=== PATIENT | female | born 1940 | race Caucasian/White ===

== ENCOUNTER 2020-07-07 01:21 | Observation (INO) ==
--- NOTE | 2020-07-07 01:48 | ERNOTE ---
Medical Problem HPI - Narrative Date of Service: 07/07/20 - General Chief Complaint: General Assessment Time Seen by Provider: 07/07/20 01:23 Source: patient, family Exam Limitations: no limitations - Immun/Allergies/Home Medications Immunizations: IMMUNIZATION HX Immunizations Up to Date Yes History of Influenza Vaccine No Hx Pneumococcal Vaccination No Allergies/Adverse Reactions: Allergies adhesive tape Allergy (Severe, Verified 07/07/20 01:38) rash Penicillins Allergy (Intermediate, Verified 07/07/20 01:38) Swelling (Other) Home Medications: HOME MEDICATIONS ascorbic acid (vitamin C) 500 mg tablet 500 mg PO DAILY 02/17/18 [Last Taken 03/19/19] acetaminophen 325 mg capsule 325 mg PO Q6H PRN 02/22/18 [Last Taken 03/18/19] aspirin 81 mg tablet,delayed release 81 mg PO DAILY 02/22/18 [Last Taken 03/16/19] omega-3 fatty acids 1,000 mg capsule 1,000 mg PO DAILY 02/22/18 [Last Taken 03/19/19] Clopidogrel Bisulfate [Plavix] 75 mg PO DAILY #30 tab 12/09/19 [Last Taken Unk nown] levothyroxine 137 mcg tablet 137 mcg PO DAILY #30 tab 05/27/20 [Last Taken Unknown] oxyCODONE HCL/ACETAMINOPHEN [Percocet 5-325 mg Tablet] 2 ea PO Q6H PRN 07/07/20 [Last Taken Unknown] - History of Present History Narrative: This patient is an 80-year-old female who arrived by ambulance with generalized weakness. She has a history of metastatic end-stage lung cancer. She is no longer receiving chemotherapy. She is scheduled to go into hospice on Wednesday, one day from now. She is currently living at home. She is not able to walk. She says that she is short of breath but indicates that she just feels too weak to breathe. She denies having any fever or cold symptoms. She is not having any chest or abdominal pain. Her gave her pain medication before coming in. She would like to stay in the hospital. She prefers comfort care and is not interested in any further work-up or treatment. She requests being DNR. Review of Systems - Review of Systems All Other Systems: All systems neg except as marked Medical History (Last Reviewed 07/07/20 @ 02:19 by Mynor Galicia MD) Lung cancer Wears dentures Back pain Onset Date: Unknown Contact dermatitis Onset Date: ~01/17/13 Hypothyroidism Onset Date: Unknown Urinary frequency Onset Date: ~05/11/12 Otitis media, acute Onset Date: ~05/11/12 URI (upper respiratory infection) Onset Date: Unknown UTI (urinary tract infection) Onset Date: Unknown Surgical History: Surgical History (Last Reviewed 07/07/20 @ 02:19 by Mynor Galicia MD) Cystocele Onset Date: 09/06/06 Dr Leon-Repair H/O colonoscopy Onset Date: 02/01/09 02/01/09 [place]-normal. 03/21/19 [place]-diverticulosis, external hemorrhoids. No further needed. H/O: hysterectomy Onset Date: ~1992 [place] [facility] History of bladder surgery Onset Date: 09/06/06 Dr. Leon-Transvaginal tape with bladder neck suspension History of carpal tunnel release Onset Date: 01/31/16 [place]-right History of cataract surgery Onset Date: Unknown [facility] Hx of cholecystectomy Onset Date: Unknown lap Family History: Family History (Last Reviewed 07/07/20 @ 02:19 by Mynor Galicia MD) Father , age 65 Lung cancer dx age 65 Mother , age 70's Lung cancer dx age 70's Son , age 45-[place] Cancer unknown type Son , age 40-[place] Myocardial infarction Brother , age 78-cancer Cancer groin area-dx age 78 Son , age 44-adrenal gland ca Cancer adrenal gland ca-dx age 44 Son Diabetes Heart disease Social History: (Last Reviewed 07/07/20 @ 02:19 by Mynor Galicia MD) Social History: adopted: No foster care: No fci: No Marital status: lives independently: Yes household members: spouse caregiver/support person: No current occupational status: retired current occupation: retired Highest level of school completed/degree received: high school graduate Service: No Tobacco: Smoking Status: Former smoker Alcohol: alcohol intake: current alcohol intake frequency: holiday/special occasion Substance Use: substance use type: does not use Dietary Habits: caffeine: Yes Personal Safety: victim of physical abuse: No victim of emotional abuse: No Physical Exam - Physical Exam General Appearance: Present: alert, no apparent distress, cachetic - And sickly appearing., other - She is lying on the table on her side and speaks very quietly. Head Exam: Present: normal inspection, no evidence of injury Eye Exam: Normal inspection: bilateral Ears, Nose, Throat: Present: normal ENT inspection Neck: Present: normal inspection, supple Respiratory: Present: no respiratory distress, normal breath sounds, lungs clear Cardiovascular/Chest: Present: regular rate, rhythm, no murmur Gastrointestinal/Abdominal: Present: normal bowel sounds, nontender, nondistended, soft, no organomegaly Extremity Exam: Present: normal inspection, non-tender, no edema Neurological Exam: Present: alert, other - No gross lateralizing neurologic deficit. Skin Exam: Present: normal color, warm/dry Progress - Date and Time Seen: Date and Time: 07/07/20 02:21 Dr. Islas was contacted and agreed to keep the patient for comfort care. Departure Clinical Impression: Lung cancer, Neoplastic (malignant) related fatigue - Departure Disposition: Still a patient Condition: Poor Referrals: Valentine Dupree MD [Primary Care Provider] -
[2020-07-07] MEDS: ONDANSETRON 4 MG TAB.RAPDIS PO PRN (02:06)
[2020-07-07] MEDS: oxyCODONE HCL 5 MG TABLET PO SCH ×2 (02:19→08:33)
[2020-07-07 04:14] VITALS: BP 105/46
[2020-07-07] MEDS ORDERED: ONDANSETRON HCL 4 MG TABLET PO PRN (09:09)
[2020-07-07] MEDS ORDERED: ACETAMINOPHEN 325 MG TABLET PO PRN (09:09)
[2020-07-07] MEDS ORDERED: CODEINE PHOSPHATE/GUAIFENESIN 5 ML UDC PO PRN (09:09)
[2020-07-07] MEDS ORDERED: GLYCERIN/PROPYLENE GLYCOL 150 DROP BTL EACHEYE PRN (09:09)
[2020-07-07] MEDS ORDERED: ATROPINE SULFATE 50 DROP BTL SL PRN (09:09)
--- NOTE | 2020-07-07 09:42 | HP ---
Chief Complaint - Chief Complaint Date of Service: 07/07/20 Time of Service: 09:00 Chief Complaint: End-of-life, admitted for comfort care History of Present Illness: Adalgisa Marks is an 80-year-old female who has metastatic lung can cer. She has stopped any aggressive treatment of the tumor and was scheduled to be admitted to [facility] tomorrow. She became short of breath and presented to ER requesting admission for comfort measures only which would include oxygen administration. She does not wish to have vital signs or lab work done. Comfort measure orders are in place. I have held all of her home meds. Medical History (Last Reviewed 07/07/20 @ 02:19 by Mynor Galicia MD) Lung cancer Wears dentures Back pain Onset Date: Unknown Contact dermatitis Onset Date: ~01/17/13 Hypothyroidism Onset Date: Unknown Urinary frequency Onset Date: ~05/11/12 Otitis media, acute Onset Date: ~05/11/12 URI (upper respiratory infection) Onset Date: Unknown UTI (urinary tract infection) Onset Date: Unknown Surgical History: Surgical History (Last Reviewed 07/07/20 @ 02:19 by Mynor Galicia MD) Cystocele Onset Date: 09/06/06 Dr Leon-Repair H/O colonoscopy Onset Date: 02/01/09 02/01/09 [place]-normal. 03/21/19 [place]-diverticulosis, external hemorrhoids. No further needed. H/O: hysterectomy Onset Date: ~1992 [place] [facility] History of bladder surgery Onset Date: 09/06/06 Dr. Leon-Transvaginal tape with bladder neck suspension History of carpal tunnel release Onset Date: 01/31/16 [place]-right History of cataract surgery [facility] Onset Date: Unknown lap Family History: Family History (Last Reviewed 07/07/20 @ 02:19 by Mynor Galicia MD) Father , age 65 Lung cancer dx age 65 Mother , age 70's Lung cancer dx age 70's Son , age 45-[place] Cancer unknown type Son , age 40-[place] Myocardial infarction Brother , age 78-cancer Cancer groin area-dx age 78 Son , age 44-adrenal gland ca Cancer adrenal gland ca-dx age 44 Son Diabetes Heart disease Social History: (Last Reviewed 07/07/20 @ 02:19 by Mynor Galicia MD) Social History: adopted: No foster care: No skilled nursing: No Marital status: lives independently: Yes household members: spouse caregiver/support person: No current occupational status: retired current occupation: retired Highest level of school completed/degree received: high school graduate Service: No Tobacco: Smoking Status: Former smoker Alcohol: alcohol intake: current alcohol intake frequency: holiday/special occasion Substance Use: substance use type: does not use Dietary Habits: caffeine: Yes Personal Safety: victim of physical abuse: No victim of emotional abuse: No Review Of Systems (GEN) - Review of Systems Generalized/Overall Review: Present: Weakness, Malaise, Weight loss EENTM: Present: Other - Dry mouth Respiratory: Present: Cough, Shortness of Breath Cardiac: Present: No Symptoms Reported Abdominal: Present: No Symptoms Reported Genitourinary: Present: No Symptoms Reported Musculoskeletal: Present: Muscle Pain Neurological: Present: Weakness Skin: Present: No Symptoms Reported, Other - Diminished turgor Endocrine: Present: No Symptoms Reported Immunizations: IMMUNIZATION HX Immunizations Up to Date Yes History of Influenza Vaccine No Hx Pneumococcal Vaccination No Allergies/Adverse Reactions: Allergies Allergy/AdvReac Type Severity Reaction Status Date / Time adhesive tape Allergy Severe rash Verified 07/07/20 01:38 Penicillins Allergy Intermediate Swelling Verified 07/07/20 01:38 (Other) Home Medications: HOME MEDICATIONS ascorbic acid (vitamin C) 500 mg tablet 500 mg PO DAILY 02/17/18 [Last Taken 03/19/19] acetaminophen 325 mg capsule 325 mg PO Q6H PRN 02/22/18 [Last Taken 03/18/19] aspirin 81 mg tablet,delayed release 81 mg PO DAILY 02/22/18 [Last Taken 03/16/19] omega-3 fatty acids 1,000 mg capsule 1,000 mg PO DAILY 02/22/18 [Last Taken 03/19/19] Clopidogrel Bisulfate [Plavix] 75 mg PO DAILY #30 tab 12/09/19 [Last Taken Unknown] levothyroxine 137 mcg tablet 137 mcg PO DAILY #30 tab 05/27/20 [Last Taken Unknown] oxyCODONE HCL/ACETAMINOPHEN [Percocet 5-325 mg Tablet] 2 ea PO Q6H PRN 07/07/20 [Last Taken Unknown] Exam - Exam Vital Signs: Vital Signs - Last Taken Temp 36.6 C 07/07/20 03:17 Pulse 88 07/07/20 03:17 Resp 12 07/07/20 03:17 BP 105/46 07/07/20 03:17 Pulse Ox 99 07/07/20 03:17 Constitutional: Present: Oriented x3, Cooperative, Well developed, Somnolent, Elderly, Thin and frail ENT Exam: Present: dry mucous membranes Eye Exam: bilateral eye: normal inspection, PERRL, EOMI Neck: Present: non-tender, limited range of motion Back Exam: Present: normal inspection, no CVA tenderness, no vertebral tenderness Breasts: Present: Exam deferred Respiratory: Present: decreased breath sounds, rhonchi Cardiovascular/Chest: Present: normal peripheral pulses, regular rate, rhythm, no chest tenderness, no edema, no gallop, no JVD, no murmur, no rub Peripheral Pulses: carotid (R): 2+, carotid (L): 2+, radial (R): 2+, radial (L): 2+ Abdomen: Present: Normal bowel sounds, soft, nontender, nondistended, no rebound tenderness, no hepatospenomegaly, no masses /Rectal: Present: Exam deferred Extremity: Present: normal range of motion, non-tender, normal inspection, no pedal edema, no calf tenderness, normal capillary refill Skin Exam: Present: pallor Lymphatic: Present: no adenopathy Neurologic: Present: motor weakness Appearance: Present: appropriate insight, disheveled Eye contact: Present: cooperative, good eye contact, normal speech Thoughts: Present: normal thought pattern, no apparent hallucination Diagnostic Studies: Laboratory Results SARS-CoV-2 (PCR) Not detected (NotDetected) 07/07/20 02:04 Assessment/Plan - Narrative Narrative: 1. Comfort orders measures placed 2. Allow regular diet for food choices 3. Hold her current home medicines 4. Notify [facility] of her admission here 5. No lab or vital signs unless the family requests that - Assessment/Plan (1) Lung cancer Problem: Acute Qualifiers: Laterality: unspecified laterality Lung location: unspecified part of lung Qualified Code(s): C34.90 - Malignant neoplasm of unspecified part of unspecified bronchus or lung (2) Cancer-related pain Problem: Acute (3) Liver metastases Problem: Acute (4) Malignant cachexia Problem: Acute (5) Neoplastic (malignant) related fatigue Problem: Acute
[2020-07-07] MEDS: MORPHINE SULFATE 10 MG/0.5 ML SYRINGE PO PRN ×3 (15:11→23:35)
[2020-07-07] MEDS: LORAZEPAM 2 MG/ML ORAL.CONC PO PRN (20:45)
[2020-07-08] MEDS: LORAZEPAM 2 MG/ML ORAL.CONC PO PRN ×3 (00:11→09:20)
[2020-07-08] MEDS: ONDANSETRON 4 MG TAB.RAPDIS PO PRN (00:22)
[2020-07-08] MEDS: MORPHINE SULFATE 10 MG/0.5 ML SYRINGE PO PRN ×3 (05:31→11:29)
--- NOTE | 2020-07-08 11:11 | DS ---
(1) Lung cancer Problem: Chronic Qualifiers: Laterality: unspecified laterality Lung location: unspecified part of lung Qualified Code(s): C34.90 - Malignant neoplasm of unspecified part of unspecified bronchus or lung (2) Cancer-related pain Problem: Chronic (3) Liver metastases Problem: Chronic (4) Malignant cachexia Problem: Chronic (5) Neoplastic (malignant) related fatigue Problem: Chronic Date of Discharge:: 07/08/20 Hospital Course: Mrs. Marks was admitted yesterday for comfort measures due to metastatic lung cancer. She does arouse and is able to, converse and answer questions appropriately. She is very fatigued. 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 I have started her on morphine 5 mg every 2 hours as needed. This morning at 6 AM her nurse noted that she was restless and did not think the 5 mg was adequate. I increased it to 10 mg and she has been resting much more comfortably since then. [facility] has been here this morning and deemed her appropriate for inpatient hospice. I have spoken with both her and her son this morning and they both feel she is getting the comfort measures they open for and they had no new requests. Procedures Performed: none Care Plan Goals: Provide comfort measures while she is transitioning and becoming active and dying. Support the family emotionally and spiritually as needed. Results and Findings: Lab Pending Results 07/07/20 02:04: SARS-CoV-2 (PCR) Not detected Discharge Location: [facility] Disposition: [facility] Home Health Agency: [facility] Condition: Poor Face to Face Encounter completed per [facility] Guidelines: No Discharge Activity: Other - Bedrest with position changes every 2 hours Discharge Diet: General/regular food Referrals: Valentine Dupree MD [Primary Care Provider] - Complete Home Medications List: Complete Home Medication List: acetaminophen 325 mg capsule 325 mg PO Q6H PRN 02/22/18 Acetaminophen [Mapap] 325 mg PO Q4H PRN #30 tablet 07/08/20 Atropine Sulfate [Isopto Atropine 1%] 2 drop SL Q2H PRN btl 07/08/20 Bisacodyl 10 mg RC DAILY PRN #14 supp.rect 07/08/20 Lorazepam [Ativan Intensol] 1 mg PO Q2H oral.conc 07/08/20 Morphine Sulfate [Morphine Sulfate Conc. Oral Solution] 10 mg PO Q1H PRN syringe 07/08/20 Morphine Sulfate [Morphine Sulfate Conc. Oral Solution] 10 mg PO Q2H #60 syringe 07/08/20 Forms: Patient Portal Registration
[2020-07-08] MEDS ORDERED: ACETAMINOPHEN 325 MG PO PRN (12:28)
--- NOTE | 2020-07-08 12:40 | HP ---
Chief Complaint - Chief Complaint Date of Service: 07/08/20 Time of Service: 09:35 Chief Complaint: End-of-life comfort care measures History of Present Illness: Adalgisa Marks is an 80-year-old female who has metastatic lung cancer. She has stopped any aggressive treatment of the tumor and was scheduled to be admitted to [facility] tomorrow. She became short of breath and presented to ER requesting admission for comfort measures only which would include oxygen administration. She does not wish to have vital signs or lab work done. Comfort measure orders are in place. I have held all of her home meds. Medical History (Last Reviewed 07/08/20 @ 02:32 by Bruna Maddox, MARY) Lung cancer Wears dentures Back pain Onset Date: Unknown Contact dermatitis Onset Date: ~01/17/13 Hypothyroidism Onset Date: Unknown Urinary frequency Onset Date: ~05/11/12 Otitis media, acute Onset Date: ~05/11/12 URI (upper respiratory infection) Onset Date: Unknown UTI (urinary tract infection) Onset Date: Unknown Surgical History: Surgical History (Last Reviewed 07/08/20 @ 02:32 by Bruna Maddox RN) Cystocele Onset Date: 09/06/06 Dr Leon-Repair H/O colonoscopy Onset Date: 02/01/09 02/01/09 [place]-normal. 03/21/19 [place]-diverticulosis, external hemorrhoids. No further needed. H/O: hysterectomy Onset Date: ~1992 [place] [facility] History of bladder surgery Onset Date: 09/06/06 Dr. Leon-Transvaginal tape with bladder neck suspension History of carpal tunnel release Onset Date: 01/31/16 [place]-right History of cataract surgery Onset Date: Unknown [facility]-bilateral Hx of cholecystectomy Onset Date: Unknown lap Family History: Family History (Last Reviewed 07/08/20 @ 02:32 by Bruna Maddox RN) Father , age 65 Lung cancer dx age 65 Mother , age 70's Lung cancer dx age 70's Son , age 45-[place] Cancer unknown type Son , age 40-[place] Myocardial infarction Brother , age 78-cancer Cancer groin area-dx age 78 Son , age 44-adrenal gland ca Cancer adrenal gland ca-dx age 44 Son Diabetes Heart disease Social History: (Last Reviewed 07/08/20 @ 02:32 by Bruna Maddox RN) Social History: adopted: No foster care: No long-term: No Marital status: lives independently: Yes household members: spouse caregiver/support person: No current occupational status: retired current occupation: retired Highest level of school completed/degree received: high school graduate Service: No Tobacco: Smoking Status: Former smoker Alcohol: alcohol intake: current alcohol intake frequency: holiday/special occasion Substance Use: substance use type: does not use Dietary Habits: caffeine: Yes Personal Safety: victim of physical abuse: No victim of emotional abuse: No Review Of Systems (GEN) - Review of Systems Generalized/Overall Review: Present: Weakness, Malaise EENTM: Present: No Symptoms Reported, Other - Dry mouth Respiratory: Present: Shortness of Breath Cardiac: Present: No Symptoms Reported Abdominal: Present: No Symptoms Reported Genitourinary: Present: No Symptoms Reported Musculoskeletal: Present: Muscle Pain, Other - Bony pain due to skeletal metastasis Neurological: Present: No Symptoms Reported Skin: Present: No Symptoms Reported Endocrine: Present: No Symptoms Reported Immunizations: IMMUNIZATION HX Immunizations Up to Date Yes History of Influenza Vaccine No Hx Pneumococcal Vaccination No Allergies/Adverse Reactions: Allergies Allergy/AdvReac Type Severity Reaction Status Date / Time adhesive tape Allergy Severe rash Verified 07/07/20 01:38 Penicillins Allergy Intermediate Swelling Verified 07/07/20 01:38 (Other) Home Medications: HOME MEDICATIONS acetaminophen 325 mg capsule 325 mg PO Q6H PRN 02/22/18 [Last Taken 03/18/19] Acetaminophen [Mapap] 325 mg PO Q4H PRN #30 tab 07/08/20 [Last Taken Unknown] Atropine Sulfate [Isopto Atropine 1%] 2 drp SL Q2H PRN btl 07/08/20 [Last Taken Unknown] Bisacodyl 10 mg RC DAILY PRN #14 supp.rect 07/08/20 [Last Taken Unknown] Lorazepam [Ativan Intensol] 1 mg PO Q2H oral.conc 07/08/20 [Last Taken Unknown] Morphine Sulfate [Morphine Sulfate Conc. Oral Solution] 10 mg PO Q1H PRN syringe 07/08/20 [Last Taken Unknown] Morphine Sulfate [Morphine Sulfate Conc. Oral Solution] 10 mg PO Q2H #60 syringe 07/08/20 [Last Taken Unknown] Exam - Exam Vital Signs: Vital Signs - Last Taken Temp 36.6 C 07/07/20 03:17 Pulse 88 07/07/20 03:17 Resp 12 07/07/20 03:17 BP 105/46 07/07/20 03:17 Pulse Ox 99 07/07/20 03:17 Constitutional: Present: Well developed, Somnolent, Elderly, Thin and frail - Cachectic due to metastatic disease ENT Exam: Present: hearing grossly normal, dry mucous membranes Eye Exam: bilateral eye: normal inspection, PERRL - Pinpoint secondary to o piates, EOMI Neck: Present: non-tender, limited range of motion Back Exam: Present: normal inspection, no CVA tenderness Breasts: Present: Exam deferred Respiratory: Present: chest non-tender, lungs clear, normal breath sounds, no respiratory distress, no accessory muscle use Cardiovascular/Chest: Present: normal peripheral pulses, regular rate, rhythm, no chest tenderness, no edema, no gallop, no JVD, no murmur, no rub Peripheral Pulses: carotid (R): 2+, carotid (L): 2+, radial (R): 2+, radial (L): 2+ Abdomen: Present: Normal bowel sounds, soft, nontender, nondistended, no rebound tenderness, no hepatospenomegaly, no masses - Reportedly she does have liver metastasis /Rectal: Present: Exam deferred Extremity: Present: normal range of motion, non-tender, normal inspection, no pedal edema, no calf tenderness, normal capillary refill Skin Exam: Present: warm/dry, no cyanosis, pallor, other - Diminished skin turgor Lymphatic: Present: no adenopathy 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 Patient hospice with [facility] to supervise 2. Comfort measures in place 3. Comfort meds reviewed with the hospice nurse and adjusted appropriately 4. Discontinued all other home medications 5. Dr. Fan to assume medical management - Assessment/Plan (1) Lung cancer Problem: Chronic Qualifiers: Laterality: unspecified laterality Lung location: unspecified part of lung Qualified Code(s): C34.90 - Malignant neoplasm of unspecified part of unspecified bronchus or lung (2) Cancer-related pain Problem: Chronic (3) Liver metastases Problem: Chronic (4) Malignant cachexia Problem: Chronic (5) Neoplastic (malignant) related fatigue Problem: Chronic
== END 2020-07-08 12:07 | disposition hospice, home (50) ==
LOC: ER 01:21 → MS 01:21
PROVIDERS: ADMIT Family Medicine; ATTEND Family Medicine